=== PATIENT | male | born 1965 | race Caucasian/White ===

== ENCOUNTER → 2016-09-12 | Outpatient (REF) | payer OTHER ==
[~2016-09-12] MED LIST: KETO10TAB PO; ZOFR4TAB3 PO
== END ==
LOC: M LAB REF 16:41
PROVIDERS: ATTEND Nurse Practitioner Family
DX: H35.81 Retinal edema (principal)

== ENCOUNTER 2016-12-27 13:44 | Emergency (ER) | payer OTHER ==
[~2016-12-27] VITALS: Ht 175.3 cm; Wt 95.5 kg
[2016-12-27] MEDS ORDERED: NS 1,000 ML IV SCH (14:34)
[2016-12-27] MEDS ORDERED: ONDANSETRON 4MG/2ML VIAL (J2405) IV ONE (14:45)
[2016-12-27] MEDS ORDERED: MORPHINE 2 MG/ML 1ML SYRINGE IV PRN (14:45)
[2016-12-27] MEDS ORDERED: KETOROLAC 30 MG/ML VIAL (J1885) IV ONE (14:45)
[2016-12-27 15:26] LABS: BASO # 0.1 10^3/uL (0.0-0.2); BASO % 0.4 % (0.0-1.0); EOS # 0.1 10^3/uL (0.0-0.50); EOS % 0.4 % (0.0-3.0); IMMATURE GRANULOCYTE % 0.4 % (0-0); LYMPH # 1.1 10^3/uL (1.5-4.5); LYMPH % 8.1 % (24.0-44.0); MEAN CORPUSCULAR HEMOGLOBIN 31.5 pg (27.0-33.0); MEAN CORPUSCULAR HGB CONC 34.1 g/dl (32.0-36.5); MEAN CORPUSCULAR VOLUME 92.6 fl (80.0-96.0); MONO # 0.9 10^3/uL (0.0-0.8); MONO % 6.3 % (0.0-5.0); NEUTROPHILS # 11.8 10^3/uL (1.8-7.7); NEUTROPHILS % 84.4 % (36.0-66.0); PLATELET COUNT, AUTOMATED 252 10^3/uL (150-450)
[2016-12-27 15:44] LABS: ALBUMIN 4.3 GM/DL (3.2-5.2); ALBUMIN/GLOBULIN RATIO 1.39 (1.00-1.93); BILIRUBIN,DIRECT 0.2 MG/DL (0.0-0.2); BILIRUBIN,TOTAL 0.7 MG/DL (0.2-1.0); CALCIUM LEVEL 9.2 MG/DL (8.5-10.1); CREATININE FOR GFR 1.55 MG/DL (0.70-1.30); GLOMERULAR FILTRATION RATE 50.4 (>56); POTASSIUM SERUM 3.8 MEQ/L (3.5-5.1); TOTAL PROTEIN 7.4 GM/DL (6.4-8.2)
--- NOTE | 2016-12-27 16:07 | REP ---
CT abdomen and pelvis without IV or oral contrast: Renal stone protocol. History: Renal colic. No comparison CT study. 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 There are clips in the gallbladder fossa. Axial CT images demonstrate that the lung bases are clear. There is no focal liver lesion. The liver is not felt to be enlarged. The spleen is unremarkable. There is an air-fluid level in a small gastric diverticulum just posterior to the fundus of the stomach. This is a normal variant. No pancreatic lesion is seen. There is mild to moderate left-sided hydronephrosis and hydroureter. There is perinephric edema. No intrarenal calculus is seen on either side. No right-sided hydronephrosis is seen. The hydroureter on the left is traced into the pelvis where there is an obstructive 4 mm calculus just above the ureterovesical junction. No bladder calculus is seen. Prostate and seminal vesicles are unremarkable. No abdominal wall defect is seen. There is left colonic diverticulosis without CT evidence of diverticulitis. A normal appendix is visible. Impression: 4 mm obstructive left distal ureteral calculus with moderate hydronephrosis and hydroureter and perinephric edema consistent with acute ureteral obstruction. Left colonic diverticulosis without diverticulitis. No other significant abnormality. Post cholecystectomy. Signed by Torsten Garcia MD 12/27/2016 07:17 P
[2016-12-27] MEDS ORDERED: ZOFR4TAB3 PO (16:08)
[2016-12-27] MEDS ORDERED: KETO10TAB PO (16:08)
[2016-12-27 16:29] VITALS: BP 171/83
== END 2016-12-27 16:31 | disposition home or self-care (01) ==
LOC: M ED 13:44
DX: N20.1 Calculus of ureter (principal)
CPT/HCPCS: 74176; 80048; 80076; 83690; 85025; 96374; 96375; 99283; J1885; J2405

== ENCOUNTER → 2017-06-03 | Outpatient (REF) | payer OTHER ==
[2017-06-03 20:21] LABS: VITAMIN B12 LEVEL 985 PG/ML (247-911)
== END ==
LOC: M LAB REF 17:37
DX: R53.83 Other fatigue (principal)

== ENCOUNTER → 2019-02-09 | Outpatient (REF) | payer OTHER ==
[~2019-02-09] MED LIST changes: +ZOFR4TAB14 PO; -ZOFR4TAB3 PO
[2019-02-09 14:59] LABS: APPEARANCE, URINE CLEAR (CLEAR); BACTERIA, URINE AUTO NEGATIVE (NEGATIVE); BILIRUBIN, URINE AUTO NEGATIVE (NEGATIVE); BLOOD, URINE BLOOD NEGATIVE (NEGATIVE); COLOR, URINE STRAW (YELLOW); GLUCOSE, URINE (UA) AUTO NEGATIVE (NEGATIVE); KETONE, URINE AUTO NEGATIVE (NEGATIVE); LEUKOCYTE ESTERASE, URINE AUTO NEGATIVE (NEGATIVE); MUCUS, URINE SMALL (NEGATIVE); NITRITE, URINE AUTO NEGATIVE (NEGATIVE); PROTEIN, URINE AUTO NEGATIVE (NEGATIVE); RBC, URINE AUTO 0 /HPF (0-3); SQUAMOUS EPITHELIAL CELL UR AU 0 /HPF (0-6); UROBILINOGEN, URINE AUTO 0.2 mg/dL (0.0-2.0); WBC, URINE AUTO 8 /HPF (0-3)
== END ==
LOC: M SMT 13:17
PROVIDERS: ATTEND Nurse Practitioner Family
DX: R36.1 Hematospermia (principal)

== ENCOUNTER → 2019-02-10 | Outpatient (REF) | payer OTHER ==
[2019-02-13 00:07] LABS: PSA % FREE 10.8 % (.); PSA FREE 0.53 ng/mL; PSA TOTAL 4.9 ng/mL (0.0-4.0)
== END ==
LOC: M LAB REF 12:00
PROVIDERS: ATTEND Internal Medicine
DX: R36.1 Hematospermia (principal)

== ENCOUNTER → 2019-02-18 | Outpatient (CLI) | payer OTHER ==
--- NOTE | 2019-02-19 10:21 | ECGEPIP ---
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
== END ==
LOC: M EKG 10:33
PROVIDERS: ATTEND Anesthesiology
DX: Z01.810 Encounter for preprocedural cardiovascular examination (principal); R00.1 Bradycardia, unspecified

== ENCOUNTER 2019-02-23 07:46 | Day surgery (SDC) | payer OTHER ==
[~2019-02-23] VITALS: Ht 172.7 cm; Wt 75.3 kg
[~2019-02-23 07:46] MED LIST changes: +LR 1,000 ML IV ONE; +ceFAZolin SOD 1 GM in D5W MINI-BAG PLUS 50 ML IV ONE
[2019-02-23] MEDS ORDERED: ceFAZolin 1GM INJ (J0690 PER 500MG) As Ordered ONE (08:00)
[2019-02-23] MEDS ORDERED: BUPIVACAINE/EPIN 0.25% 30 ML VIAL As Ordered ONE (09:05)
[2019-02-23] MEDS ORDERED: SCOPOLAMINE 1MG TRANSDERMAL PATCH As Ordered ONE (09:14)
[2019-02-23] MEDS ORDERED: PROPOFOL 200 MG/20 ML VIAL As Ordered ONE (09:21)
[2019-02-23] MEDS ORDERED: dexameTHASONE 4 MG/ML 1ML VIAL (J1100) As Ordered ONE (09:21)
[2019-02-23] MEDS ORDERED: fentaNYL 250 MCG/5 ML INJECTION (J3010) As Ordered ONE (09:21)
[2019-02-23] MEDS ORDERED: ROCURONIUM BROMIDE 50 MG/5 ML VIAL As Ordered ONE (09:21)
[2019-02-23] MEDS ORDERED: METOCLOPRAMIDE INJ 10MG/2ML VIAL (J2765) As Ordered ONE (09:21)
[2019-02-23] MEDS ORDERED: ONDANSETRON 4MG/2ML VIAL (J2405) As Ordered ONE (09:21)
[2019-02-23] MEDS ORDERED: LIDOCAINE 2% INJ 100 MG/5 ML SDV (FOR ANES.) As Ordered ONE (09:21)
[2019-02-23] MEDS ORDERED: SUGAMMADEX SODIUM 500 MG/5 ML VIAL (BRIDION) As Ordered ONE (09:21)
[2019-02-23] MEDS ORDERED: MIDAZOLAM INJ 2 MG/2 ML VIAL (J2250) As Ordered ONE (09:22)
[2019-02-23] MEDS ORDERED: KETOROLAC 60 MG/2 ML VIAL (J1885) As Ordered ONE (09:45)
[2019-02-23] MEDS ORDERED: ACETAMINOPHEN 1000MG 100ML IV BTL (OFIRMEV) (J0131 PER 10MG) As Ordered ONE (09:45)
[2019-02-23] MEDS ORDERED: fentaNYL 100 MCG/2 ML INJECTION (J3010) As Ordered ONE (09:52)
[2019-02-23] MEDS ORDERED: SCOPOLAMINE 1MG TRANSDERMAL PATCH TOP ONE (10:15)
[2019-02-23] MEDS ORDERED: METOCLOPRAMIDE INJ 10MG/2ML VIAL (J2765) IV PRN (11:15)
[2019-02-23] MEDS ORDERED: fentaNYL 100 MCG/2 ML INJECTION (J3010) IV PRN (11:15)
[2019-02-23] MEDS ORDERED: LR 1,000 ML IV SCH ×2 (11:15)
[2019-02-23] MEDS ORDERED: ONDANSETRON 4MG/2ML VIAL (J2405) IV PRN ×2 (11:15)
[2019-02-23] MEDS ORDERED: MEPERIDINE INJ 25 MG/ML VIAL (J2175) IV PRN (11:15)
[2019-02-23] MEDS: oxyCODONE 5MG TAB PO PRN ×2 (11:23→12:09)
--- NOTE | 2019-02-23 11:25 | RO ---
DATE OF PROCEDURE: 02/23/2019 PREOPERATIVE DIAGNOSIS: Left inguinal hernia. POSTOPERATIVE DIAGNOSIS: Left inguinal hernia (indirect). PROCEDURE: Robotic-assisted laparoscopic left inguinal hernia repair with ProGrip mesh. SURGEON: Dr. Howie Best HELPER [employer]ABRICATION: Zakia Varghese (provided trocar placement, instrument exchange, mesh placement and trocar site closure). ANESTHESIA: General endotracheal anesthesia. ESTIMATED BLOOD LOSS: Minimal. FLUIDS: Crystalloid. BRIEF PROCEDURE SUMMARY: The patient was brought to the operating room and was given general anesthesia. After adequate anesthesia and preoperative antibiotics were given, the patient was prepped and draped in the usual sterile fashion. Next, a supraumbilical incision was made with skin knife. Blunt dissection was carried down to fascia. The fascia was entered with Veress needle and insufflated to 15 mm of pressure. A dilating 8 mm trocar was placed at the umbilicus under direct visualization and two lateral 8 mm trocars were placed. The patient was placed in a Trendelenburg position and the camera was docked. Using a monopolar cut scissors, the peritoneum was taken down and there was mild oozing all throughout the typical avascular plane in this area and there were some adhesions of the sigmoid colon up against the left pelvic sidewall which suggest that he may have had some previous episodes of diverticulitis or maybe that his colon was intermittently going into the left inguinal hernia. In any case, the peritoneum was slowly taken down and taken off Simon's ligament, pubis medially, off the cord structures, and off the abdominal wall laterally. After adequate dissection and mobilization of the peritoneum, ProGrip mesh was cut to the appropriate size and placed in the peritoneum and pressed into position. The peritoneum was closed over the top of this using #3-0 V-Loc suture. All trocars were removed under direct visualization. #4-0 Vicryl was used close the skin incisions. Steri-Strips and a dry sterile dressing was applied. The patient was awakened, extubated and brought to the recovery room awake, alert and hemodynamically stable. Sponge and needle counts were correct times two.
[2019-02-23 12:15] VITALS: BP 163/82
== END 2019-02-23 13:30 | disposition home or self-care (01) ==
LOC: M SDC 07:46
PROVIDERS: ATTEND Surgery
DX: K40.90 Unilateral inguinal hernia, without obstruction or gangrene, not specified as recurrent (principal)
CPT/HCPCS: 49650; C1781; J0131; J0690; J1100; J1885; J2250; J2405; J2765; J3010

== ENCOUNTER → 2019-08-27 | Outpatient (REF) | payer OTHER ==
[~2019-08-27] MED LIST changes: -LR 1,000 ML IV ONE; -ceFAZolin SOD 1 GM in D5W MINI-BAG PLUS 50 ML IV ONE
== END ==
LOC: M LAB REF 17:38
PROVIDERS: ATTEND Registered Nurse
DX: R97.20 Elevated prostate specific antigen [PSA] (principal)

== ENCOUNTER → 2020-04-17 | Outpatient (REF) | payer OTHER ==
[2020-04-17 18:56] LABS: APPEARANCE, URINE CLEAR (CLEAR); BACTERIA, URINE AUTO NEGATIVE (NEGATIVE); BILIRUBIN, URINE AUTO NEGATIVE (NEGATIVE); BLOOD, URINE BLOOD NEGATIVE (NEGATIVE); COLOR, URINE STRAW (YELLOW); GLUCOSE, URINE (UA) AUTO NEGATIVE (NEGATIVE); KETONE, URINE AUTO 1+ mg/dL (NEGATIVE); LEUKOCYTE ESTERASE, URINE AUTO NEGATIVE (NEGATIVE); NITRITE, URINE AUTO NEGATIVE (NEGATIVE); PROTEIN, URINE AUTO NEGATIVE (NEGATIVE); RBC, URINE AUTO 0 /HPF (0-3); SPECIFIC GRAVITY URINE AUTO 1.006 (1.002-1.035); SQUAMOUS EPITHELIAL CELL UR AU 0 /HPF (0-6); UROBILINOGEN, URINE AUTO 0.2 mg/dL (0.0-2.0); WBC, URINE AUTO 2 /HPF (0-3)
[2020-04-17 20:38] LABS: CHLAMYDIA DNA AMPLIFICATION POSITIVE (NEGATIVE); GC DNA AMPLIFICATION NEGATIVE (NEGATIVE)
== END ==
LOC: M LAB REF 16:12
PROVIDERS: ATTEND Physician Assistant Medical
DX: Z00.00 Encounter for general adult medical examination without abnormal findings (principal); Z72.51 High risk heterosexual behavior

== ENCOUNTER → 2020-05-18 | Outpatient (REF) | payer OTHER | LOC: M LAB REF 12:22 | PROVIDERS: ATTEND Registered Nurse | DX: A74.9 Chlamydial infection, unspecified (principal) ==

== ENCOUNTER → 2020-06-03 | Outpatient (CLI) | payer OTHER | LOC: M LABSMTC 10:59 | PROVIDERS: ATTEND Anesthesiology | DX: Z01.812 Encounter for preprocedural laboratory examination (principal) ==

== ENCOUNTER 2020-06-08 10:09 | Day surgery (SDC) | payer OTHER ==
[~2020-06-08] VITALS: Ht 172.7 cm; Wt 83.6 kg
[~2020-06-08 10:09] MED LIST changes: +LIDOCAINE 2% 100MG/5ML SDV (FOR ANES.) As Ordered ONE; +NS 1,000 ML IV ONE; +propofoL 200 MG/20 ML VIAL As Ordered ONE
--- NOTE | 2020-06-08 11:28 | ROOR ---
Patient Name: Milton Valentine Procedure Date: 06/08/2020 11:05 AM Date of : 1965 Age: 54 Room: [facility] Gender: Male Note Status: Finalized Procedure: Colonoscopy Indications: High risk colon cancer surveillance: Personal history of colonic polyps Providers: Howie Best Jr, MD Referring MD: Rebeca Prabhakar NP Requesting Provider: Medicines: Propofol per Anesthesia Complications: No immediate complications. Procedure: Pre-Anesthesia Assessment: - Prior to the procedure, a History and Physical was performed, and patient medications and allergies were reviewed. The patient is competent. The risks and benefits of the procedure and the sedation options and risks were discussed with the patient. All questions were answered and informed consent was obtained. Patient identification and proposed procedure were verified by the physician and the nurse in the pre-procedure area and in the procedure room. Mental Status Examination: alert and oriented. Airway Examination: normal oropharyngeal airway and neck mobility. Respiratory Examination: clear to auscultation. CV Examination: normal. ASA Grade Assessment: II - A patient with mild systemic disease. After reviewing the risks and benefits, the patient was deemed in satisfactory condition to undergo the procedure. The anesthesia plan was to use moderate sedation / analgesia (conscious sedation). Immediately prior to administration of medications, the patient was re-assessed for adequacy to receive sedatives. The heart rate, respiratory rate, oxygen saturations, blood pressure, adequacy of pulmonary ventilation, and response to care were monitored throughout the procedure. The physical status of the patient was re-assessed after the procedure. The Colonoscope was introduced through the anus and advanced to the ileocecal valve. The colonoscopy was performed without difficulty. The patient tolerated the procedure well. The quality of the bowel preparation was adequate. Findings: The rectum, recto-sigmoid colon, sigmoid colon, descending colon, transverse colon, ascending colon, cecum, appendiceal orifice and ileocecal valve appeared normal. Non-bleeding internal hemorrhoids were found during retroflexion and during perianal exam. The hemorrhoids were Grade III (internal hemorrhoids that prolapse but require manual reduction). Impression: - The rectum, recto-sigmoid colon, sigmoid colon, descending colon, transverse colon, ascending colon, cecum, appendiceal orifice and ileocecal valve are normal. - Non-bleeding internal hemorrhoids. - No specimens collected. Recommendation: - Return to my office as previously scheduled. Procedure Code(s): --- Professional --- 45797, Colonoscopy, flexible; diagnostic, including collection of specimen(s) by brushing or washing, when performed (separate procedure) Diagnosis Code(s): --- Professional --- Z86.010, Personal history of colonic polyps K64.2, Third degree hemorrhoids CPT copyright 2019 [employer]. All rights reserved. The codes documented in this report are preliminary and upon sales commissions analyst review may be revised to meet current compliance requirements. Howie Best MD Howie Best Jr, MD 06/08/2020 11:27:20 AM Electronically signed by Howie Best Jr, MD Number of Addenda: 0 Note Initiated On: 06/08/2020 11:05 AM Estimated Blood Loss: Estimated blood loss: none.
[2020-06-08 11:40] VITALS: BP 136/75
== END 2020-06-08 11:42 | disposition home or self-care (01) ==
LOC: M OPP 10:09
PROVIDERS: ATTEND Surgery
DX: Z12.11 Encounter for screening for malignant neoplasm of colon (principal); Z86.010 Personal history of colon polyps; K64.2 Third degree hemorrhoids

== ENCOUNTER → 2023-11-19 | Outpatient (REF) | payer OTHER ==
[~2023-11-19] MED LIST changes: -LIDOCAINE 2% 100MG/5ML SDV (FOR ANES.) As Ordered ONE; -NS 1,000 ML IV ONE; -propofoL 200 MG/20 ML VIAL As Ordered ONE
[2023-11-29 15:08] LABS: TESTOSTERONE FREE (DIRECT) 73.1 pg/mL (35.0-155.0)
== END ==
LOC: M LAB REF 16:50
PROVIDERS: ATTEND Nurse Practitioner Family
DX: R97.20 Elevated prostate specific antigen [PSA] (principal)

== ENCOUNTER → 2024-04-27 | Outpatient (CLI) | payer BC ==
[~2024-04-27] MED LIST changes: +MULTTAB61 PO
== END ==
LOC: M EKG 09:48
PROVIDERS: ATTEND Anesthesiology
DX: Z01.818 Encounter for other preprocedural examination (principal)

== ENCOUNTER 2024-05-04 06:19 | Day surgery (SDC) | payer BC ==
[~2024-05-04] VITALS: Ht 174 cm; Wt 93.0 kg
[2024-05-04] MEDS ORDERED: LR 1,000 ML IV SCH ×2 (06:30→09:15)
[2024-05-04] MEDS ORDERED: MIDAZOLAM INJ 2MG/2ML VIAL As Ordered ONE (06:43)
[2024-05-04] MEDS ORDERED: fentaNYL 100 MCG/2 ML INJECTION As Ordered ONE (06:43)
[2024-05-04] MEDS ORDERED: propofoL 200 MG/20 ML VIAL As Ordered ONE (06:43)
[2024-05-04] MEDS ORDERED: SUGAMMADEX SODIUM 500 MG/5 ML VIAL (BRIDION) As Ordered ONE (06:43)
[2024-05-04] MEDS ORDERED: LIDOCAINE 2% 100MG/5ML SDV (FOR ANES.) As Ordered ONE (06:43)
[2024-05-04] MEDS ORDERED: ROCURONIUM BROMIDE 50MG/5ML VIAL As Ordered ONE (06:43)
[2024-05-04] MEDS ORDERED: ONDANSETRON 4MG 2ML VIAL As Ordered ONE (06:44)
[2024-05-04] MEDS ORDERED: ACETAMINOPHEN 1000MG/100ML IV BAG As Ordered ONE (06:45)
[2024-05-04] MEDS: ceFAZolin SOD 2 GM in IV 1 EA IV ONE (07:47)
[2024-05-04] MEDS ORDERED: KETOROLAC 60MG 2ML VIAL As Ordered ONE (07:55)
[2024-05-04] MEDS ORDERED: METOCLOPRAMIDE INJ 10MG/2ML VIAL As Ordered ONE (08:48)
[2024-05-04] MEDS ORDERED: ONDANSETRON 4MG 2ML VIAL IV PRN (09:15)
[2024-05-04] MEDS ORDERED: fentaNYL 100 MCG/2 ML INJECTION IV PRN (09:15)
[2024-05-04 10:15] VITALS: BP 172/79; TEMP 97; O2SAT 97
[2024-05-04] MEDS ORDERED: traMADol 50 MG TAB PO PRN (10:30)
[2024-05-04] MEDS ORDERED: NS (Normal Saline) 0.9% 1,000 ML IV SCH (10:30)
== END 2024-05-04 10:25 | disposition home or self-care (01) ==
LOC: M SDC 06:19
PROVIDERS: ATTEND Surgery
DX: K40.90 Unilateral inguinal hernia, without obstruction or gangrene, not specified as recurrent (principal)
CPT/HCPCS: 49650; C1781; J0131; J0665; J0690; J1100; J1885; J2250; J2405; J2765; J3010

== ENCOUNTER → 2024-10-06 | Outpatient (CLI) | payer BC | LOC: M CARPUL 09:17 | PROVIDERS: ATTEND Internal Medicine Cardiovascular Disease | DX: I51.7 Cardiomegaly (principal); I35.0 Nonrheumatic aortic (valve) stenosis; R94.31 Abnormal electrocardiogram [ECG] [EKG] ==